=== PATIENT | female | born 1975 | race Caucasian/White ===

== ENCOUNTER 2018-06-05 05:28 | Day surgery (SDC) | payer OTHER ==
[2018-06-04 14:18] VITALS: BMI 27.4
[2018-06-05] MEDS ORDERED: ONDANSETRON 4 MG/2 ML VIAL IVPUSH PRN ×2 (11:43→11:44)
[2018-06-05] MEDS ORDERED: PROMETHAZINE HCL 25 MG/1 ML VIAL IVPUSH PRN (11:43)
[2018-06-05] MEDS ORDERED: oxyCODONE HCL 5 MG TABLET PO PRN ×2 (11:43→11:44)
[2018-06-05] MEDS ORDERED: IBUPROFEN 800 MG/8 ML IJ IVPB PRN (11:44)
[2018-06-05] MEDS ORDERED: IBUPROFEN 600 MG TABLET (FP) PO PRN (11:44)
[2018-06-05] MEDS ORDERED: LACTATED RINGERS SOLUTION 1,000 ML IV SCH (11:45)
[2018-06-05] MEDS ORDERED: ELECTROLYTE-148 SOLN 1,000 ML IV SCH (11:45)
--- NOTE | 2018-06-05 11:48 | HP ---
History & Physical Update - History History: No Change - Physical Physical: No Change - Assessment Assessment: No Change - Plan Plan: No Change (No change since 05/10/18 Consent signed and witnessed)
--- NOTE | 2018-06-05 11:49 | OP ---
Operative Note - Note: Operative Date: 06/05/18 Pre-Operative Diagnosis: 43yo P2 with abnormal menses, Operation: Hysteroscopy/Myomectomy/Polypectomy/D&C Findings: 1. Stage 3 submucosal fibroid - submucosal portion resected 2. Endocervical polyps x 2 resected 3. Mirena IUD retained in perfect fundal position Post-Operative Diagnosis: Same as Pre-op Surgeon: Jillian Zaragoza Anesthesiologist/SENIOR DATA WAREHOUSE DEVELOPER: Conchis Gordon MD Anesthesia: MAC Specimens Removed: 1. Portions of fibroid. 2. Endocervical polyps x 2 Estimated Blood Loss (mls): 5 Instrument used (Debridements only): Symphion 6.3mm Hysteroscope and 3.6mm resecting device used Drains & Tubes with Location: Fluid defficit - 50cc Drains, Volume Out (mls): 250 Fluid Volume Replaced (mls): 700 Operative Report Dictated: Yes
[2018-06-05] MEDS ORDERED: MIDAZOLAM HCL 2 MG/2 ML SINGLE DOSE VIAL ONE ×2 (12:14)
[2018-06-05] MEDS ORDERED: PROPOFOL 20 ML ONE (12:20)
[2018-06-05] MEDS ORDERED: SILVER NITRATE 75% APPLIC STCK 1 PKT EACH TP ONE (12:55)
--- NOTE | 2018-06-05 16:03 | OP ---
DATE OF OPERATION: 06/05/2018 PREOPERATIVE DIAGNOSIS: A 43-year-old para 2 with abnormal menses and Mirena IUD, and known uterine fibroids. OPERATION: Hysteroscopy, myomectomy, polypectomy, dilation and curettage. FINDINGS: 1. Stage 3 submucosal fibroid, submucosal portion resected. 2. Endocervical polyps x2 resected. 3. Mirena IUD in perfect placement in the fundal portion of the uterus maintained in the same position postprocedure. PREOPERATIVE DIAGNOSIS: A 43-year-old para 2 with abnormal menses and Mirena IUD, and known uterine fibroids. SURGEON: Ilya Ridley M.D. ANESTHESIOLOGIST: Conchis Gordon M.D. ANESTHESIA: MAC SPECIMENS REMOVED: Portions of the fibroid together with 2 endocervical polyps. DESCRIPTION OF OPERATIVE PROCEDURE: After insuring informed consent, patient is brought is brought to the operating room where she was placed in dorsal lithotomy position. Perineum and vagina were prepped and draped in sterile fashion. Symphion hysteroscope was assembled, primed, and white balanced. The cervix was visualized with placing Campo retractors into the vagina. Anterior cervical lip was articulated with single-toothed tenaculum and cervix was gradually dilated with dilators to accommodate 6.3 mm Symphion hysteroscope which was placed inside the uterus without any difficulty. Intrauterine device was visualized at the fundus in perfect position. The left cornua left uterine side wall fibroid was noted and resected with Symphion resectoscope. Two cervical polyps were noted as well and were resected with Symphion resectoscope. Excellent hemostasis was noted. IUD was noted to be still in the perfect position. At that point, all instruments were removed from the uterus, cervix, and vagina. Instrument and sponge count was correct x2. Estimated blood loss was 5 mL. Fluid deficit 50 mL. Patient drained 250 mL of urine and received 700 mL of IV fluids. Patient tolerated procedure well and was brought to recovery room in stable condition. ILYA RIDLEY M.D. LUPE/[id number]
[2018-06-05 16:23] VITALS: BP 132/63; PULSE 58; TEMP 97.8
--- NOTE | 2018-06-06 17:29 | PATH ---
Surgical Pathology Report Patient Name: KARLA REICH [facility]. Rec. #: [id number] /Age/Gender: 1975 (Age: 43) / F Account: [id number] [place] [facility] Taken: 06/05/2018 Received: 06/05/2018 Reported: 06/06/2018 Physicians: Jillian Zaragoza M.D. Specimen(s) Received POLYP AND SUBMUCOSAL FIBROID Clinical History Fibroid uterus, irregular menses Final Diagnosis POLYP, SUBMUCOSAL FIBROID, POLYPECTOMY, PARTIAL MYOMECTOMY, DILATION AND CURETTAGE: ENDOMETRIUM WITH DECIDUALIZED STROMA, AND ACUTE AND CHRONIC INFLAMMATION. BENIGN ENDOCERVICAL TISSUE, AND SMOOTH MUSCLE BUNDLES SUGGESTIVE OF SUBMUCOSAL LEIOMYOMA. Electronically Signed Lakeisha Magallanes M.D. Gross Description Received in formalin labeled "polyp, submucosal fibroid," is a less than 1 g, 2.0 x 1.7 x 0.2 cm aggregate of stroud soft tissue fragments. The specimen is submitted in toto in one cassette. 06/05/2018 saudi06/05/2018
== END 2018-06-05 16:25 | disposition home or self-care (01) ==
LOC: JASU-SURG 05:28
PROVIDERS: ATTEND Obstetrics & Gynecology
PROC: 0UBC7ZX Excision of Cervix, Via Natural or Artificial Opening, Diagnostic (ICD-10-PCS; 2018-06-05)
PROC: 0UDB7ZX Extraction of Endometrium, Via Natural or Artificial Opening, Diagnostic (ICD-10-PCS; 2018-06-05)
PROC: 0UJD8ZZ Inspection of Uterus and Cervix, Via Natural or Artificial Opening Endoscopic (ICD-10-PCS; 2018-06-05)
PROC: 0UB98ZZ Excision of Uterus, Via Natural or Artificial Opening Endoscopic (ICD-10-PCS; principal; 2018-06-05 10:30)
DX: N93.9 Abnormal uterine and vaginal bleeding, unspecified (principal); D25.0 Submucous leiomyoma of uterus; N84.1 Polyp of cervix uteri; Z97.5 Presence of (intrauterine) contraceptive device
CPT/HCPCS: 84703; 88305-TC; 94760

== ENCOUNTER 2021-04-06 07:52 | Day surgery (SDC) | payer OTHER ==
[2021-04-01 11:45] VITALS: BMI 27.0
[2021-04-06] MEDS ORDERED: IBUPROFEN 600 MG TABLET (FP) PO PRN (08:51)
[2021-04-06] MEDS ORDERED: IBUPROFEN 800 MG/8 ML IJ IVPB PRN (08:51)
[2021-04-06] MEDS ORDERED: oxyCODONE HCL 5 MG TABLET PO PRN (08:51)
[2021-04-06] MEDS ORDERED: ONDANSETRON 4 MG/2 ML VIAL IVPUSH PRN (08:51)
[2021-04-06] MEDS ORDERED: ELECTROLYTE-148 SOLN 1,000 ML IV SCH (09:00)
[2021-04-06] MEDS ORDERED: LACTATED RINGERS SOLUTION 1,000 ML IV SCH (10:15)
[2021-04-06 12:59] VITALS: PULSE 70; TEMP 98
[2021-04-06 13:07] VITALS: BP 122/72
== END 2021-04-06 13:31 | disposition home or self-care (01) ==
LOC: JASU-SURG 07:52
PROVIDERS: ATTEND Obstetrics & Gynecology
PROC: 0UB98ZZ Excision of Uterus, Via Natural or Artificial Opening Endoscopic (ICD-10-PCS; principal; 2021-04-06 09:00)
PROC: 0UDB8ZX Extraction of Endometrium, Via Natural or Artificial Opening Endoscopic, Diagnostic (ICD-10-PCS; 2021-04-06 09:00)
DX: D25.0 Submucous leiomyoma of uterus (principal); N92.1 Excessive and frequent menstruation with irregular cycle
CPT/HCPCS: 81025; 94760

== ENCOUNTER 2021-11-02 04:09 | Day surgery (SDC) | payer OTHER ==
[2021-11-01 14:09] VITALS: BMI 26.5
[2021-11-02] MEDS ORDERED: ONDANSETRON 4 MG/2 ML VIAL IVPUSH PRN (11:34)
[2021-11-02] MEDS ORDERED: oxyCODONE HCL 5 MG TABLET PO PRN (11:34)
[2021-11-02] MEDS ORDERED: IBUPROFEN 800 MG/8 ML IJ IVPB PRN (11:34)
[2021-11-02] MEDS ORDERED: IBUPROFEN 600 MG TABLET (FP) PO PRN (11:34)
[2021-11-02] MEDS ORDERED: ELECTROLYTE-148 SOLN 1,000 ML IV SCH (11:45)
[2021-11-02] MEDS ORDERED: MIDAZOLAM HCL 2 MG/2 ML SINGLE DOSE VIAL ONE (12:29)
[2021-11-02] MEDS ORDERED: PROPOFOL 20 ML ONE ×4 (12:29→13:07)
[2021-11-02] MEDS ORDERED: DEXAMETHASONE SOD PHOSPHATE 4 MG/1 ML VIAL ONE (12:52)
[2021-11-02] MEDS ORDERED: ONDANSETRON 4 MG/2 ML VIAL ONE (12:52)
[2021-11-02] MEDS ORDERED: SILVER NITRATE 75% APPLIC STCK 1 PKT EACH TP ONE (13:24)
[2021-11-02] MEDS ORDERED: PROMETHAZINE HCL 25 MG/1 ML VIAL IVPUSH PRN (13:41)
[2021-11-02] MEDS ORDERED: ACETAMINOPHEN 1000 MG/100 ML BAG IVPB PRN (13:42)
[2021-11-02] MEDS ORDERED: LABETALOL HCL 5 MG/1 ML (100MG/20 ML VIAL) IVPUSH PRN (13:42)
[2021-11-02] MEDS ORDERED: LACTATED RINGERS SOLUTION 1,000 ML IV SCH (13:45)
[2021-11-02] MEDS ORDERED: hydrALAZINE HCL 20 MG/ML VIAL IVPUSH PRN (13:51)
[2021-11-02] MEDS ORDERED: hydrALAZINE HCL 20 MG/ML VIAL ONE (14:01)
[2021-11-02] MEDS ORDERED: ACETAMINOPHEN INJECTION 100 ML IVPB ONE (14:17)
[2021-11-02 15:53] VITALS: PULSE 91
[2021-11-02 16:22] VITALS: BP 153/94; TEMP 98.6
== END 2021-11-02 17:30 | disposition home or self-care (01) ==
LOC: JASU-SURG 04:09
PROVIDERS: ATTEND Obstetrics & Gynecology
PROC: 0U5B8ZZ Destruction of Endometrium, Via Natural or Artificial Opening Endoscopic (ICD-10-PCS; principal; 2021-11-02 10:00)
DX: N92.0 Excessive and frequent menstruation with regular cycle (principal); D25.0 Submucous leiomyoma of uterus
CPT/HCPCS: 81025; 88305-TC; 94760